=== PATIENT | female | born 1970 | race Caucasian/White ===

== ENCOUNTER 2020-05-02 02:21 | Emergency (ER) | payer SELFPAY ==
[~2020-05-02] VITALS: Ht 162.6 cm; Wt 47.7 kg
[2020-05-02 02:35] VITALS: Ht 162.6 cm; Wt 47.7 kg
[2020-05-02] MEDS ORDERED: CYMBALTA20 MG PO (03:01)
[2020-05-02] MEDS ORDERED: ULTRAM50 MG PO (03:01)
[2020-05-02] MEDS ORDERED: ADDERALL 15 MG15 MG PO (03:02)
[2020-05-02] MEDS ORDERED: KLONOPIN1 MG PO (03:03)
[2020-05-02 03:16] LABS: BASOPHILS 0.5 % (0-2); EOSINOPHILS 1.5 % (0-7); HEMATOCRIT 43.5 % (36.0-48.0); HEMOGLOBIN 14.3 g/dL (12-16); IMMATURE GRANULOCYTES 0.1 % (0-5); LYMPHOCYTES 15.7 % (15-50); MCH 30.4 pg (26.0-34.0); MCHC 32.9 g/dL (31.0-37.0); MCV 92.6 fL (80.0-100.0); MEAN PLATELET VOLUME 10.6 fL (7.4-10.4); MONOCYTES 8.8 % (2-11); NEUTROPHILS 73.4 % (40-80); PLATELET COUNT 252 10x3/uL (130-400); RDW 12.6 % (11.5-14.5); WBC 7.5 10x3/uL (4.8-10.8)
[2020-05-02 03:27] LABS: CALC OSMOLALITY 280 mosm/kg (275-300); CALCIUM 9.7 mg/dL (8.5-10.1); CARBON DIOXIDE 27.5 mmol/L (21.0-32.0); CHLORIDE - SERUM 106 mmol/L (98-107); CREATININE - SERUM 0.7 mg/dL (0.6-1.3); GLUCOSE 103 mg/dL (74-106); POTASSIUM - SERUM 3.5 mmol/L (3.5-5.1); SODIUM 142 mmol/L (136-145); UREA NITROGEN 7 mg/dL (7-18); eGFR NON AFRICAN AMERICAN > 90 mL/min (90-120)
[2020-05-02 03:41] LABS: ALBUMIN 4.1 g/dL (3.4-5.0); ALKALINE PHOSPHATASE 99 U/L (30-120); ALT (SGPT) 21 U/L (10-68); BILIRUBIN - TOTAL 0.43 mg/dL (0.2-1.3); PROTEIN - SERUM 6.7 g/dL (6.4-8.2); THYROID STIMULATING HORMONE 0.36 uIU/mL (0.36-3.74)
[2020-05-02 07:00] LABS: BILIRUBIN NEGATIVE (NEGATIVE); GLUCOSE NEGATIVE (NEGATIVE); KETONE MODERATE mg/dL (NEGATIVE); NITRITE NEGATIVE (NEGATIVE); UDS - AMPHET POSITIVE QUAL (NEGATIVE); UDS - BARB NEGATIVE QUAL (NEGATIVE); UDS - BENZO NEGATIVE QUAL (NEGATIVE); UDS - COCAINE NEGATIVE QUAL (NEGATIVE); UDS - OPIATE NEGATIVE QUAL (NEGATIVE); UDS - PCP NEGATIVE QUAL (NEGATIVE); UDS - THC NEGATIVE QUAL (NEGATIVE); UROBILINOGEN NORMAL (NORMAL)
[2020-05-02 07:01] LABS: EPITHELIAL CELLS OCC /hpf (0-5); WHITE CELLS - URINE OCC /hpf (NEGATIVE)
[2020-05-02 11:55] VITALS: BP 125/77
== END 2020-05-02 11:55 ==
LOC: D.ER 02:21
PROVIDERS: Family Medicine
DX: R41.82 Altered mental status, unspecified (principal); F29 Unspecified psychosis not due to a substance or known physiological condition

== ENCOUNTER → 2020-07-16 13:19 | Outpatient (CLI) | payer MEDICAID ==
[2020-05-02 02:35] VITALS: BMI 18.0
[~2020-07-16 13:19] MED LIST: ADDERALL 15 MG15 MG PO; CYMBALTA20 MG PO; KLONOPIN1 MG PO; ULTRAM50 MG PO
== END | disposition home or self-care (01) ==
LOC: D.LAB 13:15 → D.CT 13:30
PROVIDERS: ATTEND Internal Medicine Pulmonary Disease
DX: R07.82 Intercostal pain (principal); S22.32XD Fracture of one rib, left side, subsequent encounter for fracture with routine healing